=== PATIENT | male | born 1975 | race Caucasian/White ===

== ENCOUNTER 2020-12-11 23:28 | Emergency (ER) | payer OTHER ==
[~2020-12-11] VITALS: Ht 172.7 cm; Wt 78.9 kg
== END 2020-12-11 23:58 | disposition home or self-care (01) ==
LOC: ER 23:28
DX: F10.132 Alcohol abuse with withdrawal with perceptual disturbance (principal); R41.0 Disorientation, unspecified
CPT/HCPCS: 99284